=== PATIENT | male | born 1965 | race Caucasian/White ===

== ENCOUNTER 2017-02-03 04:12 | Emergency (ER) | payer OTHER ==
[2017-02-03] MEDS ORDERED: IOPAMIDOL 370 (76%) 100 ML VIAL IV ONE (04:13)
[2017-02-03 04:53] LABS: ABSOLUTE NEUTROPHIL COUNT 3.3 K/mm3 (1.8-7.7); BASO % 0.5 % (0.2-1.0); EOS # 0.1 (0.0-0.5); EOS % 1.4 % (0.9-2.9); HEMATOCRIT 44.5 % (32.0-52.0); IMM NEUT% 0.2 % (0-1); LYMPH # 2.4 (1.0-4.8); LYMPH % 37.2 % (15-45); MEAN CORPUSCULAR HGB CONC 33.7 g/dl (33.0-37.0); MEAN PLATELET VOLUME 10.2 fl (7.4-10.4); MONO # 0.6 (0.0-0.8); MONO % 9.5 % (4-12); NEUT % 51.2 % (43-75); PLATELET COUNT 196 K/mm3 (130-400); RED CELL DISTRIBUTION WIDTH 11.9 % (11.5-14.5)
[2017-02-03 05:27] LABS: ALB/GLOB RATIO 1.9 (>1.0); ALBUMIN 4.1 gm/dL (3.5-5.7); CALCIUM 9.4 mg/dL (8.6-10.3); MAGNESIUM 1.9 mg/dL (1.9-2.7)
[2017-02-03 06:10] LABS: SPECIFIC GRAVITY 1.015 (1.001-1.030); URINE BILIRUBIN NEGATIVE (NEGATIVE); URINE BLOOD NEGATIVE (NEGATIVE); URINE GLUCOSE (UA) NEGATIVE (NEGATIVE); URINE LEUKOCYTE ESTERASE NEGATIVE (NEGATIVE); URINE NITRITE NEGATIVE (NEGATIVE); URINE PROTEIN NEGATIVE (NEGATIVE); URINE UROBILINOGEN NORMAL (0-1 mg/dl)
[2017-02-03 06:11] LABS: URINE APPEARANCE CLEAR; URINE COLOR YELLOW
--- NOTE | 2017-02-03 09:04 | CT ---
Exams: CT head without contrast, CT angiogram head, CT angiogram neck COMPARISON: None INDICATION: Dizzy for 2 weeks. TECHNIQUE: CT examination of the head was obtained without contrast. CT angiogram of the head and neck was then obtained following the administration of 80 mL Isovue-370 intravenous contrast using a CT angiogram protocol which was supplemented with MIP reformations from the CT workstation. FINDINGS: Unenhanced head CT: There is no acute intracranial hemorrhage. There is no abnormal intra or extra-axial fluid collection. There is no edema, mass effect or midline shift. Ventricles are normal in size. The visualized paranasal sinuses and mastoid air cells are fairly well aerated. Minor polypoid mucosal thickening within the posterior right sphenoid sinus is noted. CT angiogram neck: There is conventional three-vessel branching off of the aortic arch. The great vessels are widely patent. The bilateral common carotid arteries are widely patent. There is very minimal calcified plaque formation at the left carotid artery bifurcation. The bilateral internal carotid arteries are widely patent. Left vertebral artery is dominant. Vertebral arteries are widely patent without evidence of dissection or stenosis. CT angiogram head: The intracranial portion of the internal carotid arteries are widely patent. The bilateral middle cerebral, anterior cerebral and posterior cerebral arteries are widely patent. No aneurysm is identified. No abnormal enhancement is seen. Non-CT angiogram findings: Lung apices are clear. Orbits are unremarkable. There is multilevel degenerative disc disease, most prominent at C5-6 and C6-7. There is multilevel neural foraminal narrowing related to uncovertebral hypertrophy, most prominent at C3-4, C5-6 and C6-7. IMPRESSION: 1. No acute intracranial abnormality. 2. CT angiogram of the head is within normal limits. 3. Minimal atheromatous plaque at the left carotid artery bifurcation. CT angiogram of the neck otherwise unremarkable. Preliminary report transmitted to the emergency department from [facility] at 0553 hours 02/03/2017.
== END 2017-02-03 07:13 | disposition home or self-care (01) ==
LOC: ED 04:12
DX: R42 Dizziness and giddiness (principal); I10 Essential (primary) hypertension; E78.5 Hyperlipidemia, unspecified; E78.00 Pure hypercholesterolemia, unspecified; Z87.442 Personal history of urinary calculi
CPT/HCPCS: 85379; 85025; 80053; 83735; 81003; 84484; 70450; 70496; 70498; 99284 ×2; 93005; Q9967